=== PATIENT | male | born 1965 | race Hispanic/Latino ===

== ENCOUNTER 2018-11-21 09:02 | Day surgery (SDC) | payer BC ==
[2018-11-20 16:00] VITALS: BP 125/76
[2018-11-20 16:11] LABS: BASOPHILS % (AUTO) 0.1 % (0.0-5.0); EOSINOPHILS % (AUTO) 15.2 % (0.0-8.0); HEMATOCRIT 34.4 % (42-54); LYMPHOCYTES % (AUTO) 26.3 % (21.0-51.0); MEAN CORPUSCULAR HEMOGLOBIN 30.2 pg (27.0-33.0); MEAN CORPUSCULAR HGB CONC 34.1 g/dL (32.0-36.0); MEAN CORPUSCULAR VOLUME 88.7 fL (79-99); MONOCYTES % (AUTO) 4.6 % (3.0-13.0); NEUTROPHILS % (AUTO) 53.8 % (40.0-77.0); PLATELET COUNT (AUTO) 237 K/uL (130-400); RED BLOOD CELL COUNT(AUTO) 3.88 MIL/uL (4.50-6.20); RED CELL DISTRIBUTION WIDTH 14.3 % (11.0-15.5)
[2018-11-20 16:19] LABS: CREATININE 1.3 mg/dL (0.5-1.5); POTASSIUM 4.2 mmol/L (3.5-5.1)
--- NOTE | 2018-11-20 18:00 | NUR ---
ABNORMAL LABS ] REPORTED ABNORMAL LABS TO DR. LEVY. NO NEW ORDERS
[2018-11-21] VITALS (16 sets, daily range): BP systolic 92–130; BP diastolic 52–87
[~2018-11-21] VITALS: Ht 175.3 cm; Wt 74.1 kg
[2018-11-21] MEDS: CEFAZOLIN SODIUM 1 GM VIAL IVP SCH ×2 (09:00→13:15)
[~2018-11-21 09:02] MED LIST: ETAN50DI2 SQ; FOLIC ACID PO; METHOTREXATE IJ
[2018-11-21] MEDS ORDERED: LACTATED RINGERS 1000ML 1,000 ML IV ONE (09:47)
--- NOTE | 2018-11-21 10:01 | NUR ---
VALUABLES: CLOTHING, MEDICATIONS, GLASSES, CELL PHONE AND WALLET GIVEN TO
--- NOTE | 2018-11-21 10:01 | NUR ---
POTENTIAL FOR INFECTION: CLIPPED RIGHT SHOULDER AND WIPED WITH MABLE PER MARGOTH SEE
[2018-11-21] MEDS ORDERED: ALLO300T2 PO (10:07)
[2018-11-21] MEDS ORDERED: HYDR200T4 PO (10:07)
[2018-11-21] MEDS ORDERED: ERGO500014 PO (10:07)
[2018-11-21] MEDS ORDERED: ONDANSETRON HCL 4 MG/2 ML VIAL ONE (11:02)
[2018-11-21] MEDS ORDERED: DEXAMETHASONE SOD PHOSPHATE 10MG/ML 1ML VIAL ONE ×2 (11:02→11:04)
[2018-11-21] MEDS ORDERED: MIDAZOLAM HCL 1 MG/ML 2ML VIAL ONE (11:02)
[2018-11-21] MEDS ORDERED: PROPOFOL 10 MG/ML 20ML VIAL IV ONE (11:02)
[2018-11-21] MEDS ORDERED: LIDOCAINE PF 2% 5ML ABBOJECT ONE (11:02)
[2018-11-21] MEDS ORDERED: NEOSTIGMINE 5MG/5ML SYR IV ONE (11:02)
[2018-11-21] MEDS ORDERED: GLYCOPYRROLATE 1 MG/5 ML SYRINGE ONE (11:02)
[2018-11-21] MEDS ORDERED: ROCURONIUM 10MG/1ML SYR 10 MG/ML ML ONE (11:03)
[2018-11-21] MEDS ORDERED: FENTANYL CITRATE PF 50 MCG/1 ML 2ML VIAL ONE ×2 (11:03→14:04)
[2018-11-21] MEDS ORDERED: METOCLOPRAMIDE 10 MG/2 ML VIAL ONE (11:04)
[2018-11-21] MEDS ORDERED: EPINEPHRINE 1 MG/ML 30ML VIAL IJ ONE (11:14)
[2018-11-21] MEDS ORDERED: CEPH500B PO (15:36)
[2018-11-21] MEDS ORDERED: HYDR-4457 PO (15:36)
--- NOTE | 2018-11-21 16:30 | NUR ---
RECEIVED AWAKE ALERT ,WITH DRESSING TO RT SHOULDER INTACT ,SLIGHT SWELLING ,WITH SLING IN PLACE ,ABLE TO MOVE FINGERS,WARM TO TOUCH,CAPILLARY REFILL,,RESP NONLABORED,ENCOURAGED TO DEEP BREATH ,DOES WELL,CALL BRO IN REACH
--- NOTE | 2018-11-21 17:15 | NUR ---
ASSISTED TO BR ,VOIDS LARGE AMT.,STATES FEELS FINE ,ASSISTED BACK TO BED AND SITS AT SIDE OF BED, AT SIDE ,
== END 2018-11-21 17:30 | disposition home or self-care (01) ==
LOC: DAH 09:02
PROVIDERS: ATTEND Orthopaedic Surgery
DX: M75.101 Unspecified rotator cuff tear or rupture of right shoulder, not specified as traumatic (principal); M75.41 Impingement syndrome of right shoulder; M19.011 Primary osteoarthritis, right shoulder; M06.9 Rheumatoid arthritis, unspecified; Z79.899 Other long term (current) drug therapy; Z98.890 Other specified postprocedural states; Z83.3 Family history of diabetes mellitus; Z82.49 Family history of ischemic heart disease and other diseases of the circulatory system; G47.33 Obstructive sleep apnea (adult) (pediatric); Z86.73 Personal history of transient ischemic attack (TIA), and cerebral infarction without residual deficits
CPT/HCPCS: 29824; 29826; 29827; 36415; 80048; 85025; A4218; A4565; A4649 ×5; A4930; A6204; C1763; G0168; J0171; J0690; J1100 ×2; J2001; J2250; J2405; J2704; J2710; J2765; J3010 ×2; J3490; J7120 ×2

== ENCOUNTER 2022-09-04 09:25 | Emergency (ER) | payer BC ==
[~2022-09-04] VITALS: Ht 172.7 cm; Wt 74.8 kg
[~2022-09-04 09:25] MED LIST changes: +ALLO300T2 PO; +CEPH500B PO; +ERGO500014 PO; -ETAN50DI2 SQ; +ETAN50SY SQ; +HYDR-4457 PO; +HYDR200T4 PO
[2022-09-04 09:29] VITALS: BP 126/86
[2022-09-04] MEDS ORDERED: OXYM15MI2 NS (10:48)
== END 2022-09-04 10:59 | disposition home or self-care (01) ==
LOC: EDH 09:25
DX: R04.0 Epistaxis (principal); M19.90 Unspecified osteoarthritis, unspecified site; Z90.49 Acquired absence of other specified parts of digestive tract

== ENCOUNTER 2022-09-04 19:19 | Emergency (ER) | payer BC ==
[~2022-09-04] VITALS: Ht 172.7 cm; Wt 76.2 kg
[~2022-09-04 19:19] MED LIST changes: +OXYM15MI2 NS
[2022-09-04 20:30] LABS: BASOPHILS % (AUTO) 0.8 % (0.0-5.0); EOSINOPHILS % (AUTO) 1.5 % (0.0-8.0); HEMATOCRIT 39.1 % (42-54); LYMPHOCYTES % (AUTO) 49.6 % (21.0-51.0); MEAN CORPUSCULAR HEMOGLOBIN 26.6 pg (27.0-33.0); MEAN CORPUSCULAR VOLUME 83.2 fL (79-99); MONOCYTES % (AUTO) 17.2 % (3.0-13.0); NEUTROPHILS % (AUTO) 30.7 % (40.0-77.0); PLATELET COUNT (AUTO) 197 K/uL (130-400); RED CELL DISTRIBUTION WIDTH 15.1 % (11.0-15.5); WHITE BLOOD COUNT (AUTO) 5.3 K/uL (4.8-10.8)
[2022-09-04 20:43] LABS: INR 0.97 (0.85-1.15); PROTHROMBIN TIME 10.6 SEC (9.6-11.6)
[2022-09-04 20:44] LABS: PARTIAL THROMBOPLASTIN TIME 30.2 SEC (26.3-35.5)
[2022-09-04 20:46] LABS: CREATININE 1.4 mg/dL (0.5-1.5); POTASSIUM 4.2 mmol/L (3.5-5.1)
[2022-09-04 20:48] VITALS: BP 131/93
[2022-09-04 20:51] LABS: ALBUMIN 3.5 g/dL (3.5-5.0); TOTAL PROTEIN, SERUM 8.3 g/dL (6.0-8.3)
== END 2022-09-04 20:55 | disposition home or self-care (01) ==
LOC: EDH 19:19
DX: R04.0 Epistaxis (principal); M19.90 Unspecified osteoarthritis, unspecified site
CPT/HCPCS: 36415; 80053; 85025; 85610; 85730

== ENCOUNTER → 2023-02-27 | Outpatient (CLI) | payer BC ==
[~2023-02-27] MED LIST changes: +IOHEXOL-350 75 ML VIAL IV ONE
== END | disposition home or self-care (01) ==
LOC: RAH 09:15
PROVIDERS: ATTEND Internal Medicine
DX: K80.20 Calculus of gallbladder without cholecystitis without obstruction (principal); I70.0 Atherosclerosis of aorta; M47.815 Spondylosis without myelopathy or radiculopathy, thoracolumbar region; R31.29 Other microscopic hematuria
CPT/HCPCS: 74178; Q9967

== ENCOUNTER → 2025-05-06 | Outpatient (CLI) | payer BC ==
[~2025-05-06] MED LIST changes: -HYDR200T4 PO; +HYDR200T75 PO
--- NOTE | 2025-05-07 15:41 | HMCIMG ---
EXAM: CT Abdomen and Pelvis with and without IV contrast CLINICAL HISTORY: OTHER SPECIFIED DISORDERS OF KIDNEY AND URETER TECHNIQUE: Axial computed tomography images of the abdomen and pelvis with and without intravenous contrast. CONTRAST: with and without intravenous contrast. COMPARISON: None provided. FINDINGS: LUNG BASES: The lung bases appear clear. No pleural effusions are seen. ARTERIAL PHASE : Arterial Unremarkable PORTAL VENOUS PHASE : Poartal vain Unremarkable LIVER: Unremarkable. GALLBLADDER AND BILE DUCTS: There are multiple radioopaque gallstones are seen. No biliary ductal dilatation is evident. PANCREAS: Unremarkable. SPLEEN: Unremarkable. ADRENAL GLANDS: Unremarkable. KIDNEYS /T/ URETERS: Absent right kidney. The left renal pelvis region shows a cystic lesion, likely suggestive of a simple renal cyst ([id number]). Approx size 2.5 x 2.1 cm. There is no left hydronephrosis or hydroureter. No urinary calculi are seen. STOMACH AND BOWEL: The unremarkable appearance of the stomach and bowel. No evidence of bowel obstruction. No evidence suggesting enteritis or colitis. APPENDIX: No evidence of acute appendicitis on CT examination. PERITONEUM: No free fluid. No free air. LYMPH NODES: No lymphadenopathy is evident. BONES: No aggressive appearing osseous lesion. No acute osseous pathology evident. IMPRESSION: Absent right kidney. 2. 2.5 x 2.1 cm left renal cyst. No left hydronephrosis. /[place]
== END | disposition home or self-care (01) ==
LOC: RAH 08:28
PROVIDERS: ATTEND Internal Medicine
DX: K80.20 Calculus of gallbladder without cholecystitis without obstruction (principal); N28.1 Cyst of kidney, acquired; N28.89 Other specified disorders of kidney and ureter; Z90.5 Acquired absence of kidney
CPT/HCPCS: 74170; Q9967